=== PATIENT | male | born 1990 ===

== ENCOUNTER 2017-05-14 06:26 | Emergency (ER) | payer OTHER ==
[2017-05-14 06:40] VITALS: BMI 19.9
[2017-05-14 06:43] VITALS: RESP 18; TEMP 97.7
[2017-05-14 07:03] LABS: BASO # 0.01 K/mm3 (0.0-2.0); BASO % 0.2 % (0.0-3.0); EOS # 0.1 (0.0-0.7); EOS % 2.1 % (1.5-5.0); GRAN # 3.62 (1.4-6.5); GRAN % 59.4 % (50.0-68.0); HEMATOCRIT 44.3 % (42.0-52.0); LYMPH # 1.8 (1.2-3.4); MEAN CORPUSCULAR HEMOGLOBIN 30.1 pg (25.0-35.0); MEAN CORPUSCULAR HGB CONC 34.5 g/dl (31.0-37.0); MEAN PLATELET VOLUME 10.3 fl (7.0-11.0); MONO # 0.6 (0.1-0.6); MONO % 9.3 % (1.0-6.0); RED CELL DISTRIBUTION WIDTH 12.6 % (11.5-14.5); WHITE BLOOD COUNT 6.1 10^3/ul (4.5-11.0)
[2017-05-14 07:14] LABS: ALB/GLOB RATIO 1.7 (1.1-1.8); ALKALINE PHOSPHATASE 72 U/L (38-126); ALT/SGPT 37 U/L (7-56); AMYLASE 99 U/L (35-125); AST/SGOT 31 U/L (17-59); BILIRUBIN,TOTAL 0.6 mg/dL (0.2-1.3); BLOOD UREA NITROGEN 16 mg/dL (7-21); CALCIUM 9.5 mg/dL (8.4-10.5); CARBON DIOXIDE 29 mmol/L (21-33); CHLORIDE 102 mmol/L (98-107); GFR AFRICAN-AMERICAN > 60; GLUCOSE,RANDOM 99 mg/dL (70-110); LIPASE 78 U/L (23-300); POTASSIUM 4.3 mmol/L (3.6-5.0); SODIUM 143 mmol/L (132-148); TOTAL PROTEIN 7.8 g/dL (5.8-8.3)
--- NOTE | 2017-05-14 07:27 | ED PDOC ---
Arrival/HPI - General Historian: Patient, Spouse - History of Present Illness Time/Duration: Other (One year) Symptom Onset: Sudden Symptom Course: Intermittent Quality: Cramping, Burning, Fullness, Gas Like Severity Level: 7 Activities at Onset: Rest Context: Sitting <MARIAM SALINAS - Last Filed: 05/14/17 07:52> <Vance Ibarra - Last Filed: 05/14/17 08:30> - General Chief Complaint: GI Problem Time Seen by Provider: 05/14/17 07:13 - History of Present Illness Narrative History of Present Illness (Text): 05/14/17 07:30 Mr. Sexton is a 27 year old male with no known past medical history who presents to the Emergency department with epigastric pain/nausea. Patient reports having intermittent epigastric pain over the course of one year and describes the pain as a mostly dull burning sensation that radiates to his back and is self limiting, lasting "a while" after he eats. Patient reports that this pain is often worse when he eats fast food/fatty food. Patient has not tried any medications to alleviate this pain or has not been to the doctor for this before. He does endorse a 20lb weight loss over the past year and constipation stating that he defecates once every three days. He reports his stool being dark and hard, and he occasionally notices bright red blood on the toilet paper after wiping. He denies any fever, chills, headache, changes in his vision, vertigo, loss of conscious, dysphagia, chest pain, palpitations, shortness of breath, cough, vomiting, diarrhea, melena, burning with urination or any numbness/tingling/weakness of any extremity. (MARIAM SALINAS) Past Medical History - Provider Review Nursing Documentation Reviewed: Yes - Travel History If Yes, travel location?: n - Past History Past History: No Previous - Infectious Disease Hx of Infectious Diseases: None - Psychiatric Hx Substance Use: No <MARIAM SALINAS - Last Filed: 05/14/17 07:52> Family/Social History Family/Social History: Diabetes (Mother), Other (Gastritis-Mother) Smoking Status: Former Smoker (Smoked 3 cigarrettes per day for 5 years and quit 2 years ago) Hx Alcohol Use: No Hx Substance Use: No <MARIAM SALINAS - Last Filed: 05/14/17 07:52> Allergies/Home Meds <MARIAM SALINAS - Last Filed: 05/14/17 07:52> <Vance Ibarra - Last Filed: 05/14/17 08:30> Allergies/Adverse Reactions: Allergies No Known Allergies Allergy (Verified 05/14/17 06:40) Review of Systems - Physician Review All systems were reviewed & negative as marked: Yes - Review of Systems Constitutional: Weight Change (20 pounds over last year). absent: Fevers Eyes: absent: Vision Changes Respiratory: absent: SOB, Wheezing Cardiovascular: absent: Chest Pain, Palpitations Gastrointestinal: Abdominal Pain, Constipation, Nausea. absent: Diarrhea, Vomiting, Hematochezia, Hematemesis, Anorexia Genitourinary Male: absent: Dysuria Musculoskeletal: absent: Myalgias Skin: absent: Rash Neurological: absent: Dizziness, Gait Changes <MARIAM SALINAS - Last Filed: 05/14/17 07:52> Physical Exam Vital Signs Reviewed: Yes Temperature: Afebrile Blood Pressure: Normal Pulse: Regular Respiratory Rate: Normal Appearance: Positive for: Well-Appearing, Non-Toxic Pain Distress: Mild Mental Status: Positive for: Alert and Oriented X 3 - Systems Exam Head: Present: Atraumatic, Normocephalic Pupils: Present: PERRL Extroacular Muscles: Present: EOMI Conjunctiva: Present: Normal Mouth: Present: Moist Mucous Membranes Pharnyx: Present: Normal. No: ERYTHEMA, EXUDATE Neck: Present: Trachea Midline. No: JVD, Lymphadenopathy Respiratory/Chest: Present: Clear to Auscultation, Good Air Exchange. No: Respiratory Distress, Accessory Muscle Use, Wheezes, Decreased Breath Sounds, Rales, Rhonchi, Tachypneic Cardiovascular: Present: Regular Rate and Rhythm, Normal S1, S2. No: Murmurs, Tachycardic, Bradycardic Abdomen: Present: Tenderness, Normal Bowel Sounds, Other (Seneca sign positive) . No: Distention, Peritoneal Signs, Rebound, Guarding, McBurney's Point Tender , Feeding Tubes, Scars Back: No: CVA Tenderness, Midline Tenderness, Paraspinal Tenderness Upper Extremity: Present: Normal Inspection, NORMAL PULSES, Capillary Refill < 2s. No: Cyanosis, Edema Lower Extremity: Present: Normal Inspection, NORMAL PULSES, Capillary Refill < 2 s. No: Edema, CALF TENDERNESS Neurological: Present: GCS=15, CN II-XII Intact, Speech Normal Skin: Present: Warm, Dry, Normal Color, Other. No: Rashes Psychiatric: Present: Alert, Oriented x 3, Normal Insight, Normal Concentration <MARIAM SALINAS - Last Filed: 05/14/17 07:52> Vital Signs Temp Pulse Resp BP Pulse Ox 05/14/17 06:41 97.7 F 85 18 128/80 99 Medical Decision Making - Lab Interpretations I have reviewed the lab results: Yes Interpretation: All labs normal <MARIAM SALINAS - Last Filed: 05/14/17 07:52> <Vance Ibarra - Last Filed: 05/14/17 08:30> ED Course and Treatment: 05/14/17 07:40 Impression: 27 year old male with no PMH who presents with epigastic pain/ nausea Differential Diagnosis included but are not limited to: Esophagitis, GERD, Gastritis, Pancreatitis, Gallstones Plan: -Abdominal U/S -NS at 100mls/hr -40mg Protonix IV -- Reassess and disposition Prior Visits: No prior visits Progress Notes: 05/14/17 07:44 (MARIAM SALINAS) 05/14/17 07:49 Patient Seen With Resident: In agreement with resident note which contains more details about the patient. Patient was seen and evaluated with resident. Came up with plan and treatment together. 05/14/17 08:27 Seen and examined with the resident. Our history and physical exam reveals a young gentleman with approximately a 1 year history of intermittent epigastric abdominal pain along with nausea. He has a poor by mouth intake. It seems to be worse with food. He has weight loss. No vomiting or diarrhea. No chest pain. No back pain. He does not appear ill. He is somewhat better after the Protonix. His ultrasound is negative. Patient will be discharged home to follow-up in the clinic. (Vance Ibarra) - Lab Interpretations Lab Results: 05/14/17 06:54 05/14/17 06:54 Lab Results 05/14/17 06:54: WBC 6.1, RBC 5.09, Hgb 15.3, Hct 44.3, MCV 87.0, MCH 30.1, MCHC 34.5, RDW 12.6, Plt Count 236, MPV 10.3, Gran % 59.4, Lymph % (Auto) 29.0, [place] % (Auto) 9.3 H, Eos % (Auto) 2.1, Baso % (Auto) 0.2, Gran # 3.62, Lymph # 1.8, [place] # 0.6, Eos # 0.1, Baso # 0.01 05/14/17 06:54: Sodium 143, Potassium 4.3, Chloride 102, Carbon Dioxide 29, Anion Gap 16, BUN 16, Creatinine 0.8, Est GFR ( Amer) > 60, Est GFR (Non- Af Amer) > 60, Random Glucose 99, Calcium 9.5, Total Bilirubin 0.6, AST 31, ALT 37, Alkaline Phosphatase 72, Total Protein 7.8, Albumin 4.9 H, Globulin 2.9, Albumin/Globulin Ratio 1.7, Amylase 99, Lipase 78 - RAD Interpretation Radiology Orders: 05/14/17 07:18 GALLBLADDER & HEPATIC [US] Stat - Medication Orders Current Medication Orders: Sodium Chloride (Sodium Chloride 0.9%) 1,000 mls @ 100 mls/hr IV .Q10H MATILDE Last Admin: 05/14/17 08:00 Dose: 100 mls/hr eMAR Start Stop Document 05/14/17 08:00 [facility] (Rec: 05/14/17 08:00 [facility] [id number]) Intravenous Solution Start Date 05/14/17 Start Time 08:00 Discontinued Medications Pantoprazole Sodium (Protonix Inj) 40 mg IVP STAT STA Stop: 05/14/17 07:19 Last Admin: 05/14/17 08:00 Dose: 40 mg IVP Administration Document 05/14/17 08:00 [facility] (Rec: 05/14/17 08:00 [facility] [id number]) Charges for Administration # of IVP Administrations 1 <MARIAM SALINAS - Last Filed: 05/14/17 07:52> - Scribe Statement The provider has reviewed the documentation as recorded by the Scribe <Vance Ibarra - Last Filed: 05/14/17 08:30> - Scribe Statement Lida Chin Provider Scribe Attestation: All medical record entries made by the Scribe were at my direction and personally dictated by me. I have reviewed the chart and agree that the record accurately reflects my personal performance of the history, physical exam, medical decision making, and the department course for this patient. I have also personally directed, reviewed, and agree with the discharge instructions and disposition. (Vance Ibarra) Disposition/Present on Arrival - Present on Arrival History of DVT/PE: No History of Uncontrolled Diabetes: No Urinary Catheter: No History of Decub. Ulcer: No History Surgical Site Infection Following: None <MARIAM SALINAS - Last Filed: 05/14/17 07:52> - Present on Arrival Any Indicators Present on Arrival: No History of DVT/PE: No History of Uncontrolled Diabetes: No Urinary Catheter: No History of Decub. Ulcer: No - Disposition Have Diagnosis and Disposition been Completed?: Yes Disposition Time: 08:28 Patient Plan: Discharge <Vance Ibarra - Last Filed: 05/14/17 08:30> - Disposition Diagnosis: Epigastric pain, Nausea, Weight loss Disposition: HOME/ ROUTINE Condition: GOOD Discharge Instructions (ExitCare): Acute Abdominal Pain (ED) Prescriptions: Pantoprazole Sodium [Protonix] 40 mg PO DAILY #20 ect Referrals: PCP,NO [Primary Care Provider] - Follow up with primary [facility] [place] [Outside] - Follow up with primary Forms: [facility] ([facility]), WORK NOTE
[2017-05-14] MEDS ORDERED: Sodium Chloride 0.9% 1,000 ML IV SCH (07:30)
--- NOTE | 2017-05-14 08:11 | US ---
EXAM: US Abdomen Limited, Right Upper Quadrant CLINICAL HISTORY: 27 years old, male; Pain; Abdominal pain; Other: Ruq; Additional info: Abd pain w/ pos murphys sign TECHNIQUE: Real-time ultrasound of the right upper quadrant with image documentation. COMPARISON: No relevant prior studies available. FINDINGS: Liver: Liver measures approximately 16.0 cm in sagittal length. No intrahepatic bile duct dilation. Hepatopedal blood flow in the portal vein. Gallbladder: No cholelithiasis. Gallbladder wall thickness is 1 mm. Negative sonographic Hooker's sign. No pericholecystic fluid. Common bile duct: Common bile duct measures 5 mm in diameter which is within normal limits. No stones. No dilation. Pancreas: Unremarkable as visualized. Right kidney: Right kidney measures 10.2 cm in sagittal length. No hydronephrosis or mass identified. No stones. Vasculature: Visualized portions of the inferior vena cava and abdominal aorta appear within normal limits. IMPRESSION: No acute findings.
[2017-05-14 08:32] LABS: URINE BILIRUBIN NEGATIVE (NEGATIVE); URINE BLOOD NEGATIVE (NEGATIVE); URINE GLUCOSE (UA) NEGATIVE (NEGATIVE); URINE KETONE NEGATIVE (NEGATIVE); URINE LEUKOCYTE ESTERASE NEGATIVE Leu/uL (NEGATIVE); URINE PROTEIN TRACE mg/dL (<30 mg/dL)
[2017-05-14 08:34] LABS: URINE APPEARANCE CLEAR (CLEAR); URINE COLOR YELLOW (YELLOW)
[2017-05-14 08:43] VITALS: BP 110/78; PULSE 82; O2SAT 98
[2017-05-14 08:54] LABS: URINE AMORPHOUS SEDIMENT TRACE; URINE BACTERIA MOD (NEG); URINE RBC NEGATIVE /hpf (0-2); URINE WBC 0 - 2 /hpf (0-6)
== END 2017-05-14 08:43 | disposition home or self-care (01) ==
LOC: ED 06:26
DX: R10.13 Epigastric pain (principal); R11.0 Nausea; R63.4 Abnormal weight loss
CPT/HCPCS: 76705; 80053; 81001; 82150; 83690; 85025; 96374; 99283; C9113; J7040